=== PATIENT | male | born 2000 | race African-American/Black ===

== ENCOUNTER 2024-05-20 18:13 | Emergency (ER) | payer MEDICAID ==
[~2024-05-20] VITALS: Ht 172.7 cm; Wt 81.8 kg
[2024-05-20 19:48] VITALS: BP 105/60; PULSE 76; RESP 17; TEMP 98.7; O2SAT 97
[2024-05-20] MEDS: LIDOCAINE 1% HCL (LOCAL ANESTH.) INJ 20ML MDV IJ ONE (22:24)
[2024-05-20] MEDS ORDERED: IBUP-1455 PO (23:03)
[2024-05-20] MEDS ORDERED: CEPH500C PO (23:03)
[2024-05-20] MEDS: IBUPROFEN 800 MG TAB PO ONE (23:09)
== END 2024-05-20 23:16 | disposition home or self-care (01) ==
LOC: ER 18:13
DX: L02.412 Cutaneous abscess of left axilla (principal); Z88.0 Allergy status to penicillin
CPT/HCPCS: 10060; J2001